=== PATIENT | female | born 2000 | race African-American/Black ===

== ENCOUNTER 2025-01-30 09:08 | Emergency (ER) | payer MEDICAID, OTHER ==
[~2025-01-30] VITALS: Ht 162.6 cm; Wt 50.4 kg
[2025-01-30 10:12] VITALS: BP 120/86; PULSE 94; RESP 16; TEMP 99; O2SAT 97
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
== END 2025-01-30 10:34 | disposition home or self-care (01) ==
LOC: ER 09:08
DX: S63.610A Unspecified sprain of right index finger, initial encounter (principal); W23.2XXA Caught, crushed, jammed or pinched between a moving and stationary object, initial encounter; Y93.89 Activity, other specified; Y92.89 Other specified places as the place of occurrence of the external cause; Y99.8 Other external cause status
CPT/HCPCS: 29130; 73130

== ENCOUNTER 2025-09-08 19:12 | Emergency (ER) | payer MEDICAID ==
[~2025-09-08] VITALS: Ht 162.6 cm; Wt 44.0 kg
[2025-09-08 19:13] VITALS: BP 112/79; PULSE 65; RESP 16; TEMP 98.4; O2SAT 100
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
[2025-09-08] MEDS: IBUPROFEN 800 MG TAB PO ONE (21:10)
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
[2025-09-08] MEDS ORDERED: METH4PAK PO (21:55)
[2025-09-08] MEDS ORDERED: TIZA-142 PO (21:55)
== END 2025-09-08 22:20 | disposition home or self-care (01) ==
LOC: ER 19:12
DX: S13.4XXA Sprain of ligaments of cervical spine, initial encounter (principal); S29.012A Strain of muscle and tendon of back wall of thorax, initial encounter; S33.5XXA Sprain of ligaments of lumbar spine, initial encounter; M25.511 Pain in right shoulder; M25.512 Pain in left shoulder; V43.52XA Car driver injured in collision with other type car in traffic accident, initial encounter; Y93.I9 Activity, other involving external motion; Y92.488 Other paved roadways as the place of occurrence of the external cause; Y99.8 Other external cause status
CPT/HCPCS: 72040; 72070; 72100